=== PATIENT | male | born 1985 | race Caucasian/White ===

== ENCOUNTER 2016-06-19 13:19 | Emergency (ER) | payer MEDICAID ==
[2016-06-19 13:30] VITALS: BP 127/98
[2016-06-19] MEDS ORDERED: KETOROLAC TROMETHAMINE 60 MG/2 ML VIAL IM ONE ×2 (13:53→13:55)
[2016-06-19] MEDS ORDERED: DIAZEPAM 5 MG/ML SYRG IM ONE (13:53)
[2016-06-19] MEDS ORDERED: DIAZEPAM 5 MG/ML SYRG ONE (13:55)
--- NOTE | 2016-06-19 14:05 | ERNOTE ---
Back Pain ER HPI Date of Service: 06/19/16 Presenting Symptoms: injury/pain to back Time Seen by Provider: 06/19/16 13:42 Source: patient, RN notes reviewed Exam Limitations: no limitations Immunizations: IMMUNIZATION HX Immunizations Up to Date Yes History of Influenza Vaccine No Hx Pneumococcal Vaccination No Allergies/Adverse Reactions: Allergies No Known Allergies Allergy (Verified 06/19/16 13:30) Home Medications: HOME MEDICATIONS Cyclobenzaprine HCl [Flexeril] 10 mg PO TID PRN #30 tab 06/19/16 [Last Taken Unknown] Ibuprofen [Motrin] 600 mg PO Q6H PRN #40 tab 06/19/16 [Last Taken Unknown] Narrative: Obey is a 30 year old male ambulatory to the ED for back pain. He reports having pain off and on for about 2 months, but it was significantly worse today - so much so that he was crying and had to have help getting out of bed from his girlfriend. He has been taking ibuprofen periodically. He denies any injury. His pain is diffuse from the upper lumbar to upper sacral region. Quality/Severity: Reports: severe, aching Location of pain: Reports: lower back, no radiation Activities at Onset: Reports: none Recent Injury?: Reports: no Possible Precipitating Factor: Reports: lifting, turning/bending Associated Symptoms: Denies: fever/chills, sweating, constipation/incontinence, nausea/vomiting, problems urinating, difficulty walking, numbess/weakness in legs Prior Treament: Denies: similar symptoms before Review of Systems - Review of Systems Constitutional: Absent: recent illness, fever, chills EYE: Present: no symptoms reported ENT: Present: no symptoms reported Respiratory: Absent: shortness of breath, cough Cardiology: Absent: chest pain, edema Gastrointestinal/Abdominal: Absent: nausea, vomiting, abdominal pain Genitourinary: Absent: dysuria, hematuria Musculoskeletal: Present: back pain. Absent: neck pain, joint pain Skin: Absent: rash, lesions, lumps Neurological: Absent: headache, dizziness/light-headedness, weakness, numbness, tingling Endocrine: Present: no symptoms reported Hematologic/Lymphatic: Present: no symptoms reported Psych: Present: no symptoms reported - Patient's Past Medical History Patient History - Medical: No pertinent hx Patient History - Cardiac/Respiratory: Arrhythmias - SVT Patient History - Cancer: No Hx of Cancer Patient History - Surgical Procedures: No surgical history Patient History - Other: None - Social History Living Situations: significant other Abuse History: No History of abuse Psych History: No pertinent hx Does anyone smoke in the home?: Yes Smoking Status: Current every day smoker Have you smoked in the past 12 months: Yes Do you dip or chew tobacco: No Alcohol Use: occasionally Drug Use: none - Immunizations Immunizations Up to Date: Yes Hx Pneumococcal Vaccination: No History of Influenza Vaccine: No Physical Exam - Physical Exam General Appearance: Present: wd/wn, alert, no apparent distress, cheerful Neck: Present: normal inspection, nontender, supple, full range of motion Respiratory: Present: no respiratory distress, normal breath sounds, no accessory muscle use, lungs clear Cardiovascular/Chest: Present: regular rate, rhythm, no murmur, normal peripheral pulses Gastrointestinal/Abdominal: Present: nontender, nondistended, soft Back Exam: Present: no CVA tenderness, other - diffuse tenderness throughout lumbar region, positive straight leg test at 60 degrees Extremity Exam: Present: normal inspection, normal range of motion Neurological Exam: Present: alert, oriented, normal mood/affect, no motor/ sensory deficits, other - normal strength against resistance in both legs DTR: N=norm/NB=norm/brisk/A=abs/DD=dull/dimin/HC=hyperactive: Knee (R): Normal/ Brisk, Knee (L): Normal/Brisk Skin Exam: Present: normal color, warm/dry ED Progress - Vital Signs Patient's Vital Signs:: I have reviewed the patient's vital signs. Vital Signs: Vital Signs 06/19/16 13:24 Temperature 37.1 C Pulse Rate 71 Respiratory 14 Rate Blood Pressure 127/98 O2 Sat by Pulse 98 Oximetry - Progress/Reassessment Chief Complaint: Back Pain Progress:: Improved Departure Clinical Impression: Low back pain Qualifiers: Chronicity: unspecified Back pain laterality: bilateral Sciatica presence: without sciatica Qualified Code(s): M54.5 - Low back pain - Departure Disposition: Home Follow Up Needed Condition: Stable Instructions: Back Pain, Adult Referrals: Justin Hammond MD [Primary Care Provider] - Prescriptions: Cyclobenzaprine HCl [Flexeril] 10 mg PO TID PRN #30 tab PRN Reason: MUSCLE SPASMS Ibuprofen [Motrin] 600 mg PO Q6H PRN #40 tab PRN Reason: Pain
--- OUTSIDE RECORDS SUMMARY | 2016-06-19 14:15 | XMS REPORT | Continuity of Care Document ---
:1985 Author Organization [facility] ([facility]) Address [address] [place] [address] Phone [phone] Care Team Providers Name Role Phone Unavailable Primary Care Provider Unavailable Source Comments This disclosure is being made pursuant to the Care Everywhere program, applicable federal and state laws, and may not contain all informaitonavailable regarding this patient.[facility] ([facility]) Active Allergies and Adverse Reactions Not on File Current Medications Not on file Active Problems Not on file Social History Tobacco Use Types Packs/Day Years Used Date Never Assessed Plan of Care Health Maintenance Due Date Last Done Comments Hepatitis B Vaccine (1 of 3 - Primary Series) 1985 Tdap Vaccine 09/07/1998 Lipid Disorder Screening 09/07/2005 MMR Vaccine 09/07/2005 Td Vaccine 09/07/2005 Varicella Vaccine (1 of 2 - Adult - No Evidence of 09/07/2005 Immunity) Influenza Vaccine: Seasonal (#1) 09/27/2015 Results from Last 3 Months Not on file
== END 2016-06-19 14:19 | disposition home or self-care (01) ==
LOC: ER 13:19
DX: M54.5 Low back pain (principal); F17.210 Nicotine dependence, cigarettes, uncomplicated